=== PATIENT | female | born 1940 | race Caucasian/White ===

== ENCOUNTER 2017-08-20 13:20 | Emergency (ER) | payer MEDICARE, OTHER ==
[2017-08-20 13:21] VITALS: BMI 26.6
[2017-08-20 13:29] VITALS: PULSE 69; RESP 20; TEMP 98.2; O2SAT 98
[2017-08-20 14:41] VITALS: BP 174/76
--- NOTE | 2017-08-20 15:06 | C.PDOC ---
History Of Present Illness 77 yr old female brought in via EMS, presents to the ER for carbon monoxide exposure. Patient states her building had multiple evacuees for proven carbon monoxide elevation. Patient denies fever, vision changes, chest pain, palpitations, SOB, nausea, vomiting, headache, weakness or numbness. Time Seen by Provider: 08/20/17 14:08 Chief Complaint (Nursing): Dizziness/Lightheaded History Per: Patient History/Exam Limitations: no limitations Past Medical History Reviewed: Historical Data, Nursing Documentation, Vital Signs Vital Signs: Last Vital Signs Temp 98.2 F 08/20/17 13:27 Pulse 69 08/20/17 13:27 Resp 20 08/20/17 13:27 BP 174/76 H 08/20/17 14:41 Pulse Ox 98 08/20/17 15:06 - Medical History PMH: Arthritis, Asthma, CHF, HTN, Hypercholesterolemia Family History: States: No Known Family Hx - Social History Hx Tobacco Use: No Hx Alcohol Use: No Hx Substance Use: No - Immunization History Hx Tetanus Toxoid Vaccination: No Hx Influenza Vaccination: No Hx Pneumococcal Vaccination: No Review Of Systems Except As Marked, All Systems Reviewed And Found Negative. Constitutional: Negative for: Fever Eyes: Negative for: Vision Change Cardiovascular: Negative for: Chest Pain, Palpitations Respiratory: Negative for: Shortness of Breath Gastrointestinal: Negative for: Nausea, Vomiting Neurological: Negative for: Weakness, Numbness, Headache Physical Exam - Physical Exam Appears: Non-toxic, No Acute Distress Skin: Warm, Dry, No Rash Head: Atraumatic, Normacephalic Oral Mucosa: Moist Chest: Symmetrical, No Tenderness Cardiovascular: Rhythm Regular, No Murmur Respiratory: Normal Breath Sounds, No Rales, No Rhonchi, No Stridor, No Wheezing Extremity: Normal ROM, No Swelling Neurological/Psych: Oriented x3, Normal Speech ED Course And Treatment O2 Sat by Pulse Oximetry: 98 (RA) Pulse Ox Interpretation: Normal Medical Decision Making Medical Decision Making: PLAN: * ABG NOTE: finger CO pulse Ox=7 NORMAL LOW susp of CO exposure cleared for d/c Disposition Doctor Will See Patient In The: Office Counseled Patient/Family Regarding: Studies Performed, Diagnosis - Disposition Referrals: José Antonio Olivarez MD [Staff Provider] - Disposition: HOME/ ROUTINE Disposition Time: 15:06 Condition: GOOD Additional Instructions: Your Carbon Monoxide Level is 7 which is NORMAL (N=<10) This shows NO toxic exposure OK to follow-up with Dr. Olivarez as usual. Instructions: Carbon Monoxide Poisoning (ED) Forms: [facility] (Occitan) - Clinical Impression Clinical Impression: Carbon monoxide exposure - Scribe Statement The provider has reviewed the documentation as recorded by the Bibianaibe Keri Stoner Provider Attestation: All medical record entries made by the Bibianaibe were at my direction and personally dictated by me. I have reviewed the chart and agree that the record accurately reflects my personal performance of the history, physical exam, medical decision making, and the department course for this patient. I have also personally directed, reviewed, and agree with the discharge instructions and disposition.
== END 2017-08-20 15:14 | disposition home or self-care (01) ==
LOC: C.ER 13:20
DX: T75.89XA Other specified effects of external causes, initial encounter (principal); X58.XXXA Exposure to other specified factors, initial encounter

== ENCOUNTER 2018-05-06 02:25 | Inpatient (IN) | payer OTHER ==
[2018-05-06 02:25] VITALS: BMI 26.6
[2018-05-06 03:02] LABS: BASO # 0.1 K/uL (0.0-0.2); BASO % 0.8 % (0.0-2.0); EOS # 0.3 K/uL (0.0-0.7); EOS % 3.2 % (0.0-4.0); HEMOGLOBIN 10.3 g/dL (11.0-16.0); MEAN CELL VOLUME 78.4 fL (81.0-99.0); MEAN CORPUSCULAR HEMOGLOBIN 26.2 pg (27.0-31.0); MEAN CORPUSCULAR HGB CONC 33.4 g/dL (33.0-37.0); MEAN PLATELET VOLUME 8.1 fL (7.2-11.7); MONO % 11.3 % (0.0-10.0); NEUT # 3.3 K/uL (1.8-7.0); NEUT % 38.7 % (50.0-75.0); NRBC % 0.1 % (0.0-2.0); RBC 3.92 Mil/uL (3.80-5.20); RED CELL DISTRIBUTION WIDTH 15.5 % (11.5-14.5); WHITE BLOOD COUNT 8.7 K/uL (4.8-10.8)
[2018-05-06 03:43] LABS: ALB/GLOB RATIO 1.3 (1.0-2.1); ALBUMIN 4.1 g/dL (3.5-5.0); ALT/SGPT 30 U/L (9-52); AST/SGOT 32 U/L (14-36); BLOOD UREA NITROGEN 12 mg/dL (7-17); CALCIUM 9.7 mg/dl (8.6-10.4); GFR AFRICAN-AMERICAN 58; GFR NON-AFRICAN AMERICAN 48
--- NOTE | 2018-05-06 03:44 | C.PDOC ---
History Of Present Illness presents with shortness of breath, and hypertension over the last day. No chest pain or palpitations. SHARMA, no f/c/n/v. Tolerating po. Is making brent, almost striderous noise upon breathing Time Seen by Provider: 05/06/18 03:43 Chief Complaint (Nursing): High Blood Pressure History Per: Patient History/Exam Limitations: no limitations Onset/Duration Of Symptoms: Days Current Symptoms Are (Timing): Still Present Initiating Event: Other Exacerbating Factor(s): Coughing Current Respiratory Medications: See Home Med List Severity: Moderate Pain Scale Rating Of: 4 Associated Symptoms: Other. denies: Fever, Chills Reports Recently: Treated By A Physician Recent travel outside of the [place]: No Additional History Per: Family Past Medical History Reviewed: Historical Data, Nursing Documentation, Vital Signs Vital Signs: Last Vital Signs Temp 98.7 F 05/06/18 02:36 Pulse 71 05/06/18 05:46 Resp 20 05/06/18 05:46 BP 175/87 H 05/06/18 05:46 Pulse Ox 99 05/06/18 05:46 - Medical History PMH: Arthritis, Asthma, CHF, HTN, Hypercholesterolemia Denies: Chronic Kidney Disease Family History: States: No Known Family Hx - Social History Hx Tobacco Use: No Hx Alcohol Use: No Hx Substance Use: No - Immunization History Hx Tetanus Toxoid Vaccination: No Hx Influenza Vaccination: No Hx Pneumococcal Vaccination: No Review Of Systems Constitutional: Negative for: Fever, Chills Eyes: Negative for: Redness ENT: Positive for: Throat Pain Cardiovascular: Positive for: Edema (trace). Negative for: Chest Pain, Palpitations Respiratory: Positive for: Shortness of Breath, SOB with Excertion Gastrointestinal: Negative for: Nausea, Vomiting Genitourinary: Negative for: Dysuria Musculoskeletal: Negative for: Back Pain Skin: Negative for: Rash Neurological: Negative for: Weakness Psych: Negative for: Anxiety Physical Exam - Physical Exam Appears: Non-toxic Skin: Warm, Dry Head: Normacephalic Eye(s): bilateral: Normal Inspection Oral Mucosa: Moist Throat: No Erythema, No Exudate, No Drooling Neck: Trachea Midline, Supple Chest: Symmetrical Cardiovascular: Rhythm Regular Respiratory: Decreased Breath Sounds, Rales Gastrointestinal/Abdominal: Soft, No Tenderness, No Distention Back: Normal Inspection Extremity: Pedal Edema (trace) Extremity: Bilateral: Atraumatic Pulses: Left Dorsalis Pedis: Normal, Right Dorsalis Pedis: Normal Neurological/Psych: Oriented x3, Normal Speech, Normal Cognition Gait: Steady ED Course And Treatment - Laboratory Results Result Diagrams: 05/06/18 02:57 05/06/18 02:57 ECG: Interpreted By Me, Viewed By Me ECG Rhythm: Nonspecific Changes O2 Sat by Pulse Oximetry: 97 Pulse Ox Interpretation: Normal - Radiology CXR: Interpreted by Me, Viewed By Me CXR Interpretation: Yes: Other (mild vasc congestion). No: Infiltrates, Fracture, Pnemothorax Disposition Discussed With Dr.: José Antonio Olivarez Comment: accepted the pt onhis service and took over the care at 6:39AM Doctor Will See Patient In The: Hospital Counseled Patient/Family Regarding: Studies Performed, Diagnosis - Disposition Disposition: HOSPITALIZED Disposition Time: 03:44 Condition: FAIR Forms: [facility] [employer] [facility] (Vietnamese) - POA Present On Arrival: None - Clinical Impression Clinical Impression: CHF, acute, Dyspnea, Dysphagia Decision To Admit - Pt Status Changed To: Hospital Disposition Of: Inpatient - Admit Certification Admit to Inpatient:: After my assessment, the patient will require hospitalization for at least two midnights. This is because of the severity of symptoms shown, intensity of services needed, and/or the medical risk in this patient being treated as an outpatient. - InPatient: Physician Admission Certification: I certify that this patient requires 2 or more midnights of care for the following reason:: After my assessment, the patient will require hospitalization for at least two midnights. This is because of the severity of symptoms shown, intensity of services needed, and/or the medical risk in this patient being treated as an outpatient. - . Bed Request Type: Telemetry Admitting Physician: José Antonio Olivarez Patient Diagnosis: CHF, acute, Dyspnea, Dysphagia
[2018-05-06] MEDS: Albuterol-Ipratrop 3 mg / 0.5 (3 ml) UD IH SCH ×3 (04:30→05:30)
[2018-05-06] MEDS ORDERED: Albuterol 0.083% Inhal Sol (2.5 mg/3 mL) UD ONE (05:19)
[2018-05-06] MEDS: (Novolog) Insulin Aspart, Recombinant 100 u/ml 10 ml vial SC SCH ×4 (07:51→21:23)
--- NOTE | 2018-05-06 09:11 | RAD ---
Date of service: 05/06/2018 PROCEDURE: CHEST RADIOGRAPH, 1 VIEW HISTORY: SOB COMPARISON: 03/15/2016 FINDINGS: LUNGS: Current lung volumes less than before. Crowding of pulmonary vascular markings and additional mild pulmonary venous congestion suspect. - the latter is an interval change. PLEURA: No pneumothorax or pleural fluid seen. CARDIOVASCULAR: Mild cardiomegaly. Pulmonary vasculature note as above OSSEOUS STRUCTURES: Thoracic spondylosis. Bilateral shoulder arthrosis VISUALIZED UPPER ABDOMEN: Normal. OTHER FINDINGS: None. IMPRESSION: Current lung volumes less than before. Crowding of pulmonary vascular markings and additional mild pulmonary venous congestion suspect. - the latter is an interval change. . Mild cardiomegaly
[2018-05-06] MEDS ORDERED: Fluticasone Nasal 50 mcg/Spray NAS SCH (10:00)
[2018-05-06] MEDS: Pantoprazole 40 mg EC Tab PO SCH (11:10)
[2018-05-06] MEDS: Nitroglycerin 2% Ointment Foilpak UD TOP SCH ×2 (11:10→21:28)
--- NOTE | 2018-05-06 11:34 | CT ---
Date of service: 05/06/2018 PROCEDURE: CT Chest without contrast HISTORY: cough, hoarseness COMPARISON: None. TECHNIQUE: Contiguous axial images were obtained through the chest without intravenous contrast enhancement. Sagittal and coronal reconstructions were performed. Radiation dose (DLP): 226.6 mGy-cm. This CT exam was performed using one or more of the following dose reduction techniques: Automated exposure control, adjustment of the mA and/or kV according to patient size, and/or use of iterative reconstruction technique. FINDINGS: LUNGS: Clear lungs. Visualized airway clear. MEDIASTINUM: Unremarkable thoracic aorta. No aneurysm. Cardiomegaly. Coronary arterial and valvular calcifications. Main pulmonary artery unremarkable. No vascular congestion. No lymphadenopathy. PLEURA: No pleural fluid. No pneumothorax. BONES: No fracture. Degenerative changes. No destructive lesion. UPPER ABDOMEN: Distended gallbladder. OTHER FINDINGS: None. IMPRESSION: Unremarkable non-contrast enhanced CT of the chest.
--- NOTE | 2018-05-06 12:03 | CT ---
Date of service: 05/06/2018 PROCEDURE: CT NECK WITHOUT CONTRAST HISTORY: Hoarseness, dysphagia COMPARISON: None. TECHNIQUE: CT of the neck without intravenous contrast. Coronal and sagittal reformats generated. Radiation dose: DLP 347.65 mGy-cm This CT exam was performed using one or more of the following dose reduction techniques: Automated exposure control, adjustment of the mA and/or kV according to patient size, and/or use of iterative reconstruction technique. FINDINGS: NASOPHARYNX: Unremarkable tech: Removed factors right. SUPRAHYOID NECK: Unremarkable oropharynx, oral cavity, parapharyngeal space and retropharyngeal space. INFRAHYOID NECK: Unremarkable larynx, hypopharynx, and supraglottic space. There is asymmetry of the aryepiglottic folds and pyriform sinuses which however these findings may in part be due to motion artifacts/ swallowing at the time of acquisition of the image. Some residual and or retained secretion in the left pyriform sinus may also account for some asymmetry. If further evaluation is required, consider repeat CT scan of the neck with contrast. MASS: No large cervical mass or collection is identified. GLANDS: Parotid and submandibular glands unremarkable. There is enlargement of the thyroid gland which is somewhat heterogeneous in appearance some of which is likely due to streak and beam hardening artifact however the possibility of multiple nodules/-border should be excluded. Enlarged thyroid gland appears to narrow the airway at this level. Followup ultrasound of the thyroid gland is recommended thyroid. Clinical correlation recommended. The visualized proximal/ upper esophagus is somewhat bulbous in appearance and appears to project into the upper airway with what could represent some adjacent mucous secretion along the lateral aspect of the trachea at the level of the thoracic inlet. Recommend followup esophagram or direct visualization. LYMPH NODES: Multiple small nonspecific bilateral cervical lymph nodes none of which appear pathologically enlarged. CERVICAL SPINE: Mild multilevel degenerative spondylosis of the cervical spine with mild kyphotic angulation centered at the C4-C5 level which could be secondary to patient positioning in the gantry; underlying element of muscle spasm may contribute. OTHER FINDINGS: The visualized proximal/ upper esophagus is somewhat bulbous in appearance and appears to project into the upper airway with what could represent some adjacent mucous secretion along the lateral aspect of the trachea at the level of the thoracic inlet. Consider followup esophagram or endoscopy. The cervical vasculature is not well delineated due to the lack of circulating intravenous contrast however there are partially calcified atherosclerotic plaque changes seen at both carotid bifurcations. IMPRESSION: There is enlarged heterogeneous thyroid gland. Findings probably represent thyroid goiter. Recommend followup thyroid ultrasound. The enlarged thyroid gland appears to narrow the airway at this level. Upper/proximal esophagus appears somewhat is somewhat bulbous in appearance and appears to project into the upper airway with what could represent some adjacent mucous secretion along the lateral aspect of the trachea at the level of the thoracic inlet. Recommend follow-up of esophagram for direct visualization. Collectively these findings could account for patient's difficulty swallowing. See above discussion for additional details findings . Preliminary report provided by overnight radiology service Note that this report was placed in PA review folder for followup
[2018-05-06] MEDS ORDERED: (Novolog) Insulin Aspart, Recombinant 100 u/ml 10 ml vial ONE (12:32)
[2018-05-06] MEDS: MethylPREDNISolone 40 mg Vial IVP SCH ×2 (13:23→21:28)
[2018-05-06 13:34] LABS: CK-MB 0.81 ng/mL (0.0-3.38); TROPONIN I 0.014 ng/mL (0.00-0.120)
[2018-05-06] MEDS: Albuterol-Ipratrop 3 mg / 0.5 (3 ml) UD INH SCH ×2 (14:10→20:00)
[2018-05-06] MEDS: Potassium Chloride 20 mEq ER Tab PO SCH (17:38)
[2018-05-06 20:39] LABS: CK-MB 0.74 ng/mL (0.0-3.38)
[2018-05-06 20:44] LABS: FREE T4 1.21 ng/dL (0.78-2.19)
[2018-05-06] MEDS: Fluticasone Nasal 50 mcg/Spray NAS SCH (21:00)
[2018-05-07] MEDS: Albuterol-Ipratrop 3 mg / 0.5 (3 ml) UD INH SCH ×4 (01:23→19:55)
--- NOTE | 2018-05-07 02:32 | CON ---
DATE: 05/06/2018 CARDIOLOGY CONSULTATION REASON FOR CONSULTATION: Shortness of breath and abnormal EKG. HISTORY OF PRESENT ILLNESS: The patient is a 77-year-old female from [facility] who has a history of hypertension, has a history of positive Myoview stress test in 2013 for inferolateral ischemia, has a history of bronchial asthma and history of goiter. She presented because of shortness of breath and what appeared to this ER physician has to be stridor. The patient denies any chest pain and is unaware of any history of heart attack in the past. The patient denies any productive cough, fever or chills. SOCIAL HISTORY: Nonsmoker. MEDICATIONS: Hydralazine 25 mg twice a day, clonidine 0.1 mg at bedtime, aspirin 81 mg once a day, heparin 5000 units subcutaneously every 8 hours, Lasix 40 mg intravenously once a day, Norvasc 10 mg once a day, Protonix 40 mg p.o. once a day, Solu-Medrol 40 mg intravenously every 8 hours, TriCor 48 mg once a day. REVIEW OF SYSTEMS: No fever or chills. No nausea or vomiting. No recent dizziness or syncope. PHYSICAL EXAMINATION: GENERAL: The patient is an elderly female who does not appear to be in acute distress. VITAL SIGNS: Blood pressure 173/79, heart rate 72, temperature 98.2, respiration 18. HEENT: Normocephalic. CHEST: Diffuse bilateral rhonchi. HEART: S1 and S2 are regular and distant. ABDOMEN: Soft. EXTREMITIES: Trace leg edema. EKG revealed normal sinus rhythm with nonspecific lateral T-wave changes. LABORATORY DATA: SMA-7: Sodium 146, potassium 3.4, chloride 108, CO2 of 27, glucose 100, BUN 12, creatinine 1.1. Two sets of troponins are negative. ProBNP is 1250. Chest x-ray revealed borderline cardiomegaly and prominent bronchovascular markings. Echocardiographic study in 2016 revealed normal left ventricular systolic function, mild mitral insufficiency, [id number] pulmonary hypertension. Neck soft tissue CT scan without contrast revealed enlarged heterogeneous thyroid gland finding probably represents thyroid goiter. Recommend followup thyroid ultrasound. Enlarged thyroid gland appears to narrow the airway at the level of upper/proximal esophagus, appears somewhat bulbous in appearance and appears to project into the upper airway which could represent from adjacent mucus secretions along the lateral aspect of the trachea. Recommend followup esophagogram for . Head CT scan without contrast was unremarkable. ASSESSMENT: 1. Marked thyroid goiter with upper airway compromise probably related to the goiter. 2. Abnormal EKG with evidence of nonspecific lateral T-wave changes. Myocardial infarction is ruled out. 3. Uncontrolled hypertension. 4. Hypokalemia. 5. Uncontrolled diabetes mellitus. 6. Lhmd-by-tofyalfv pulmonary hypertension. RECOMMENDATIONS: Continue current albuterol inhaler. Continue aspirin 81 mg once a day, subcutaneous heparin 5000 units every 8 hours, Lasix 40 mg intravenously once a day, Norvasc 10 mg once a day, Solu-Medrol 40 mg intravenously every 8 hours, TriCor 48 mg once a day. Obtain an echocardiogram and consider surgical evaluation for the goiter. In the meantime, obtain thyroid profile. Eliseo Arce MD
--- NOTE | 2018-05-07 06:32 | HP ---
DATE: 05/06/2018 SUBJECTIVE: This patient is a 77-year-old female with history of hypertension, diabetes, arthritis, and back pain. The patient came to the hospital because the patient was complaining of shortness of breath, and the patient has stated that the shortness of breath that is for the past 3 days was progressively worsening, and so, patient came for evaluation. In the emergency room, the patient had test done, and today a CAT scan of the chest and had CT of the neck. Also, the patient was complaining of some chest tightness, so patient was admitted. Patient was on different medications including , Montelukast, meloxicam, and also patient was on oxycodone, amlodipine, , gabapentin, isosorbide dinitrate. ALLERGIES: THE PATIENT HAS NO KNOWN ALLERGIES. SOCIAL HISTORY: No smoking, alcohol abuse. The patient lives alone. FAMILY HISTORY: No inherited disease. REVIEW OF SYSTEMS: The patient is having shortness of breath at rest. Cardiovascular: The patient has been having some tightness in the chest. GI: No nausea or vomiting but complains of epigastric pain. : No dysuria. Neurologic: The patient is complaining of back pain which is old and increased with standing or prolonged sitting position. PHYSICAL EXAMINATION: GENERAL: The patient is alert and awake and oriented x3, able to speak full sentence. VITAL SIGNS: Blood pressure now at 174/74, pulse is 74, respirations 20, temperature 98.1. NECK: Supple. No JVD. LUNGS: He does have some rhonchi with periods of expiratory wheezing and also some grunting noted. HEART: Regular rate and rhythm. ABDOMEN: Soft, nontender. No palpable mass. EXTREMITIES: There is no edema. BACK: Tender in the lower lumbar area and increased risk of friction and extension. LABORATORY DATA: The patient had some tests done. WBC 8.7, hemoglobin 10.3, hematocrit 20.7, and platelet is 460. The chemistry showed of 66, troponin 0.014. Sodium 146, potassium 3.4, chloride is 108, bicarb 27, BUN 12, creatinine 1.1, and GFR is 58. Glucose is 100. Also, the patient had other tests done in the emergency room. The patient had a CAT scan of the chest that has revealed unremarkable noncontrast enhanced CT of the chest and also the patient has soft tissue CT of the neck, there is an enlarged heterogeneous thyroid gland representing thyroid goiter and enlarged thyroid gland appeared to now at this level. So, this is the report from the CT of the neck. ASSESSMENT AND PLAN: 1. The plan is that patient will be on telemetry, and the case was reviewed with VIJI Aponte, consult is made with Dr. Arce, awnings mechanic, and also with Dr. Novak, Pulmonary, cerebrospinal fluid. 2. Chronic obstructive pulmonary disease. 3. Diabetes. 4. Hypertension. 5. Goiter. José Antonio Olivarez MD
[2018-05-07] MEDS: MethylPREDNISolone 40 mg Vial IVP SCH ×2 (06:56→22:34)
[2018-05-07 07:27] LABS: CALCIUM 9.8 mg/dl (8.6-10.4)
[2018-05-07 07:28] LABS: BASO % 0.1 % (0.0-2.0); HEMOGLOBIN 10.4 g/dL (11.0-16.0); LYMPH # 2.5 K/uL (1.0-4.3); LYMPH % 22.2 % (20.0-40.0); MEAN CELL VOLUME 78.9 fL (81.0-99.0); MEAN CORPUSCULAR HEMOGLOBIN 25.8 pg (27.0-31.0); MEAN CORPUSCULAR HGB CONC 32.7 g/dL (33.0-37.0); MEAN PLATELET VOLUME 8.3 fL (7.2-11.7); MONO # 0.5 K/uL (0.0-0.8); MONO % 4.7 % (0.0-10.0); NEUT # 8.2 K/uL (1.8-7.0); RBC 4.05 Mil/uL (3.80-5.20); RED CELL DISTRIBUTION WIDTH 15.8 % (11.5-14.5); WHITE BLOOD COUNT 11.3 K/uL (4.8-10.8)
[2018-05-07] MEDS: (Novolog) Insulin Aspart, Recombinant 100 u/ml 10 ml vial SC SCH ×4 (08:49→22:42)
[2018-05-07] MEDS: Fluticasone Nasal 50 mcg/Spray NAS SCH ×2 (08:55→22:35)
[2018-05-07] MEDS: Pantoprazole 40 mg EC Tab PO SCH (09:37)
[2018-05-07] MEDS: Nitroglycerin 2% Ointment Foilpak UD TOP SCH ×2 (09:38→22:34)
[2018-05-07] MEDS: Potassium Chloride 20 mEq ER Tab PO SCH (09:38)
[2018-05-07] MEDS ORDERED: Potassium Chloride 20 mEq ER Tab PO ONE (10:00)
--- NOTE | 2018-05-07 11:42 | CARD ---
APPROVED REPORT Date of service: 05/06/2018 EKG Measurement Heart [id number] OR [id number] [id number] <Conclusion> Normal sinus rhythm Nonspecific T wave abnormality Abnormal ECG
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
--- NOTE | 2018-05-07 18:08 | PN ---
DATE: 05/07/2018 SUBJECTIVE: The patient denies chest pain. Shortness of breath has improved. No wheezing. PHYSICAL EXAMINATION: VITAL SIGNS: Blood pressure 132/75, heart rate 63, temperature 98.3, respiration 20. HEENT: Normocephalic. CHEST: Minimal rhonchi. HEART: S1 and S2, regular. ABDOMEN: Soft. EXTREMITIES: No edema. LABORATORY DATA: Today's SMA-7; sodium 146, potassium 3.4, chloride 102, CO2 of 30, glucose 190, BUN 20, creatinine 1.6. Today's hemoglobin and hematocrit 10.4 and 31.9, white count is 11.3, platelet count 540,000. ASSESSMENT: 1. Chronic obstructive lung disease. 2. Multinodular goiter with upper airway compromise. 3. Hypertension. 4. Hypokalemia. 5. Uncontrolled diabetes mellitus. 6. [id number] pulmonary hypertension. 7. Prerenal azotemia. RECOMMENDATIONS: Discontinue Lasix. Continue K-Dur at 20 mEq orally once a day, aspirin 81 mg once a day, clonidine 0.1 mg at bedtime, hydralazine 25 mg twice a day, Norvasc 10 mg once a day, TriCor at 48 mg once a day, Solu-Medrol 40 mg intravenously every 12 hours. Eliseo Arce MD
--- NOTE | 2018-05-08 00:54 | PN ---
DATE: 05/07/2018 SUBJECTIVE: Today, the patient is alert and awake. She is seen and examined. The patient has less shortness of breath today, but she gets severe shortness of breath on exertion. Denied any chest pain or palpitation. The patient is feeling weak. PHYSICAL EXAMINATION: VITAL SIGNS: The patient has a blood pressure of 132/75, pulse 66, respirations are 20, and temperature is 98.2. NECK: Supple. LUNGS: She has some expiratory wheezing noted. HEART: Regular rate and rhythm. Positive murmur. ABDOMEN: Soft and nontender. Positive bowel sounds. EXTREMITIES: There is no edema. LABORATORY DATA: The patient's blood work has shown WBC of 11.3, the patient ; hemoglobin 10.4; hematocrit 31.9; and platelets 540. Chemistry showed a sodium of 146, potassium 3.4, chloride 102, bicarbonate is 30, BUN 20, creatinine 1.6, glucose 190, and calcium is 9.8. The plan is that we are going to decrease the Solu-Medrol to every 12 hours. Pulmonary consult with Dr. Novak is seen and appreciated. The patient will have a PFT when more stable. Progress note from Dr. Arce, cardiology, also appreciated. This is also I received. Now, we are going to continue the current treatment. The case was discussed and reviewed with Stephanie Hamilton, the nurse practitioner. José Antonio Olivarez MD
[2018-05-08] MEDS: Albuterol-Ipratrop 3 mg / 0.5 (3 ml) UD INH SCH ×4 (01:16→19:46)
[2018-05-08] MEDS: (Novolog) Insulin Aspart, Recombinant 100 u/ml 10 ml vial SC SCH ×4 (08:52→22:09)
[2018-05-08] MEDS: Fluticasone Nasal 50 mcg/Spray NAS SCH ×2 (08:53→21:00)
[2018-05-08] MEDS: Pantoprazole 40 mg EC Tab PO SCH (10:05)
[2018-05-08] MEDS: Nitroglycerin 2% Ointment Foilpak UD TOP SCH ×2 (10:06→22:18)
[2018-05-08] MEDS: MethylPREDNISolone 40 mg Vial IVP SCH (10:06)
[2018-05-08] MEDS: Potassium Chloride 20 mEq ER Tab PO SCH (10:06)
--- NOTE | 2018-05-08 12:15 | US ---
Thyroid ultrasound History: Thyroid nodules. Comparison: CT dated 05/06/2018 Technique: Real-time sonography was performed through the thyroid. Findings: Right lobe: 5.6 x 1.5 x 2.4 centimeters. Heterogeneous echotexture. Normal flow. Multiple nodules: For example largest 3 include: Lower pole heterogeneous echogenic nodule with internal cystic foci measuring 5 x 5 x 8 millimeters. Lower pole heterogeneous echogenic nodule with internal cystic foci measuring 5 x 3 x 5 millimeters. Midpole heterogeneous cystic/solid nodule measuring 6 x 4 x 6 millimeters. Thyroid isthmus measures 3 millimeters. Heterogeneous echotexture. Normal flow. Heterogeneous partially echogenic nodule at the left aspect of the isthmus measuring 1.5 x 0.6 x 1.2 centimeters. Left lobe: 6.3 x 1.9 x 2.5 centimeters. Heterogeneous echotexture. Normal flow. Multiple nodules: For example largest 3 include: Midpole heterogeneous echogenic nodule with internal cystic foci measuring 1.5 x 1.0 x 1.5 centimeters. Mid to lower pole heterogeneous echogenic nodule with a few punctate internal cystic foci measuring 2.1 x 1.1 x 1.3 centimeters. Lower pole heterogeneous complex solid/cystic nodule measuring 1.4 x 0.9 x 1.5 centimeters. Impression: Multinodular thyroid gland as described above.
[2018-05-08 14:17] LABS: CALCIUM 9.9 mg/dl (8.6-10.4)
[2018-05-08] MEDS ORDERED: Oxycodone/Acetaminophen 5/325 mg Tab PO PRN (15:30)
--- NOTE | 2018-05-08 17:13 | CP.PCM.PN ---
Subjective - Date & Time of Evaluation Date of Evaluation: 05/08/18 Time of Evaluation: 17:08 - Subjective Subjective: PT ALERT, LESS COUGH. ROS ; OTHERWISE NEG Objective - Vital Signs/Intake and Output Vital Signs (last 24 hours): Temp Pulse Resp BP Pulse Ox 98.3 F 60 20 130/61 98 05/08/18 15:00 05/08/18 15:00 05/08/18 15:00 05/08/18 15:00 05/08/18 15:00 - Medications Medications: Current Medications Acetaminophen (Tylenol 325mg Tab) 650 mg PO Q6 PRN PRN Reason: PAIN, MILD 1-3 Albuterol/Ipratropium (Duoneb 3 Mg/0.5 Mg (3 Ml) Ud) 3 ml INH RQ6 [facility] Last Admin: 05/08/18 13:32 Dose: 3 ml Amlodipine Besylate (Norvasc) 10 mg PO DAILY [facility] Last Admin: 05/08/18 10:01 Dose: 10 mg Aspirin (Ecotrin) 81 mg PO DAILY [facility] Last Admin: 05/08/18 10:02 Dose: 81 mg Clonidine HCl (Catapres) 0.1 mg PO HS [facility] Last Admin: 05/07/18 22:35 Dose: 0.1 mg Fenofibrate (Tricor) 48 mg PO DAILY [facility] Last Admin: 05/08/18 10:06 Dose: 48 mg Fluticasone Propionate (Flonase) 1 spr MAGNO RQ12 [facility] Last Admin: 05/08/18 08:53 Dose: 1 spr Heparin Sodium (Porcine) (Heparin) 5,000 units SC Q8 [facility] Last Admin: 05/08/18 14:07 Dose: 5,000 units Hydralazine HCl (Apresoline) 25 mg PO Q12 [facility] Last Admin: 05/08/18 10:02 Dose: 25 mg Insulin Aspart (Novolog) 0 unit SC ACHS [facility] PRN Reason: Protocol Last Admin: 05/08/18 12:19 Dose: 3 unit Methylprednisolone (Solu-Medrol) 40 mg IVP DAILY [facility] Montelukast Sodium (Singulair) 10 mg PO HS [facility] Last Admin: 05/07/18 22:34 Dose: 10 mg Nitroglycerin (Nitro-Bid 2% Oint) 0.5 ea TOP Q12 [facility] Last Admin: 05/08/18 10:06 Dose: 0.5 ea Oxycodone/Acetaminophen (Percocet 5/325 Mg Tab) 1 tab PO Q6H PRN PRN Reason: Pain, moderate (4-7) Stop: 05/11/18 15:31 Pantoprazole Sodium (Protonix Ec Tab) 40 mg PO DAILY [facility] Last Admin: 05/08/18 10:05 Dose: 40 mg Potassium Chloride (K-Dur 20 Meq Er Tab) 20 meq PO DAILY [facility] Stop: 05/08/18 17:16 Last Admin: 05/08/18 10:06 Dose: 20 meq - Labs Labs: 05/07/18 06:38 05/08/18 13:54 - Constitutional Appears: No Acute Distress - Head Exam Head Exam: ATRAUMATIC, NORMOCEPHALIC - Eye Exam Eye Exam: EOMI, Normal appearance - ENT Exam ENT Exam: Mucous Membranes Moist - Neck Exam Neck Exam: absent: Tenderness - Respiratory Exam Respiratory Exam: Decreased Breath Sounds. absent: Accessory Muscle Use, Wheezes, Respiratory Distress - Cardiovascular Exam Cardiovascular Exam: RRR, +S1, +S2 - GI/Abdominal Exam GI & Abdominal Exam: Soft. absent: Tenderness - Rectal Exam Rectal Exam: Deferred - Extremities Exam Extremities Exam: absent: Calf Tenderness, Pedal Edema - Back Exam Back Exam: absent: CVA tenderness (L), CVA tenderness (R) - Neurological Exam Neurological Exam: Alert, CN II-XII Intact - Psychiatric Exam Psychiatric exam: Normal Mood - Skin Skin Exam: absent: Rash Assessment and Plan (1) COPD exacerbation Status: Acute (2) Hypertension Status: Acute (3) Diabetes Status: Acute (4) Anemia Status: Acute (5) Acute kidney injury Status: Acute (6) CAD (coronary artery disease) Status: Acute (7) Goiter Status: Acute - Assessment and Plan (Free Text) Assessment: RESP STATUS IMPROVING, CONT PULM TOILET. NEB BD, CXR REVIEWED, DISCUSSED WITH STAFF.
--- NOTE | 2018-05-08 22:33 | PN ---
DATE: 05/08/2018 SUBJECTIVE: The patient denies any wheezing. She has comfortable breathing at this time. PHYSICAL EXAMINATION: VITAL SIGNS: Blood pressure 130/61, heart rate 60, temperature is 98.3, respirations 20. HEENT: Normocephalic. CHEST: Minimal rhonchi. HEART: S1 and S2 regular. EXTREMITIES: No edema. LABORATORY DATA: Today's SMA-7, sodium 146, potassium 3.4, chloride 102, CO2 of 30, glucose 190, BUN 20, creatinine 1.6. Thyroid ultrasound was consistent with multinodular goiter. ASSESSMENT: 1. Multinodular goiter with upper airway compromise. 2. Systemic hypertension. 3. Hypokalemia. 4. Prerenal azotemia. 5. [id number] pulmonary hypertension. 6. Uncontrolled diabetes mellitus. RECOMMENDATIONS: Continue hydralazine 25 mg twice a day, clonidine 0.1 mg once a day, aspirin 81 mg once a day, albuterol inhaler every 6 hours, subcutaneous heparin 5000 units every 8 hours, Norvasc 10 mg once a day, Protonix 40 mg p.o. once a day, TriCor 48 mg once a day, Solu-Medrol 40 mg intravenously daily. The patient did receive K-Dur 20 mEq oral replacement today, and she is currently off diuretics. If kidney function remains the same, then consider IV hydration. The case was discussed with the primary physician, Dr. Olivarez who will consult Dr. Lua for the problem of upper airway resection caused by multinodular goiter. In the meantime, I recommended pulmonary function test. Eliseo Arce MD
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
[2018-05-09] MEDS: Albuterol-Ipratrop 3 mg / 0.5 (3 ml) UD INH SCH ×4 (01:16→20:02)
[2018-05-09] MEDS: (Novolog) Insulin Aspart, Recombinant 100 u/ml 10 ml vial SC SCH ×5 (06:30→22:47)
[2018-05-09 07:23] LABS: BASO % 0.2 % (0.0-2.0); EOS % 0.1 % (0.0-4.0); HEMOGLOBIN 10.1 g/dL (11.0-16.0); LYMPH # 5.2 K/uL (1.0-4.3); LYMPH % 30.8 % (20.0-40.0); MEAN CELL VOLUME 78.7 fL (81.0-99.0); MEAN PLATELET VOLUME 8.2 fL (7.2-11.7); MONO # 1.3 K/uL (0.0-0.8); MONO % 7.7 % (0.0-10.0); NEUT # 10.2 K/uL (1.8-7.0); NEUT % 61.2 % (50.0-75.0); RBC 3.89 Mil/uL (3.80-5.20); RED CELL DISTRIBUTION WIDTH 15.9 % (11.5-14.5); WHITE BLOOD COUNT 16.7 K/uL (4.8-10.8)
[2018-05-09 07:50] LABS: CALCIUM 9.5 mg/dl (8.6-10.4)
[2018-05-09] MEDS: Fluticasone Nasal 50 mcg/Spray NAS SCH ×2 (08:39→22:41)
[2018-05-09] MEDS: MethylPREDNISolone 40 mg Vial IVP SCH (09:12)
[2018-05-09] MEDS: Pantoprazole 40 mg EC Tab PO SCH (09:13)
[2018-05-09] MEDS: Nitroglycerin 2% Ointment Foilpak UD TOP SCH ×2 (09:13→22:42)
--- NOTE | 2018-05-09 10:55 | RAD ---
Sacrum and coccyx 3 views History: Pain. Comparison: None available. Findings: No evidence for acute displaced fracture or dislocation. Mild sclerosis at the right SI joint. Anterolisthesis of L4 on L5. Sclerosis with superior endplate concavity of the L5 vertebral body. Impression: No evidence for acute displaced fracture or dislocation. Mild sclerosis at the right SI joint. Anterolisthesis of L4 on L5. Sclerosis with superior endplate concavity of the L5 vertebral body. If pain persists, consider MRI.
--- NOTE | 2018-05-09 10:58 | RAD ---
Lumbar spine three views History: Back pain. Comparison: None available. Findings: Moderate fecal retention in the colon. Anterolisthesis of L4 on L5. Superior endplate concavity of the L5 vertebral body. Lower level facet hypertrophy and sclerosis. Prominent degenerative changes at the L2-3 disc space with sclerosis and or mild superior endplate concavity at the L3 vertebral body. This may be better evaluated with MRI if clinically indicated. Prominent degenerative changes in the spine. Aortic calcifications. Impression: Moderate fecal retention in the colon. Anterolisthesis of L4 on L5. Superior endplate concavity of the L5 vertebral body. Lower level facet hypertrophy and sclerosis. Prominent degenerative changes at the L2-3 disc space with sclerosis and or mild superior endplate concavity at the L3 vertebral body. This may be better evaluated with MRI if clinically indicated.
--- NOTE | 2018-05-09 16:07 | CARD ---
APPROVED REPORT Date of service: 05/06/2018 EXAM: Two-dimensional and M-mode echocardiogram with Doppler and color Doppler. Other Information Quality : FairRhythm : NSR INDICATION Dyspnea Congestive Heart Failure COPD RISK FACTORS Hypertension M-Mode DIMENSIONS Left Atrium (MM)3.85 (2.5-4.0cm)IVSd0.83 (0.7-1.1cm) Aortic Root2.50 (2.2-3.7cm)LVDd5.10 (4.0-5.6cm) Aortic Cusp Exc.1.84 (1.5-2.0cm)PWd0.80 (0.7-1.1cm) FS (%) 54 %LVDs2.36 (2.0-3.8cm) LVEF (%)84 (>50%) Mitral Valve MV E Ehvwrafe35.4cm/sMV A Pkofkhom210.3cm/sE/A ratio0.5 TDI E/Lateral E'0.0E/Medial E'0.0 Tricuspid Valve TR Peak Jlmwsshk812ls/sTR Peak Gr.[id number] LEFT VENTRICLE The left ventricle is normal size. There is normal left ventricular wall thickness. The Ejection Fraction is >70%. There is normal LV segmental wall motion. Transmitral Doppler flow pattern is Grade I-abnormal relaxation pattern. RIGHT VENTRICLE The right ventricle is normal size. The right ventricular systolic function is normal. ATRIA The left atrium size is normal. The right atrium size is normal. The interatrial septum is intact with no evidence for an atrial septal defect. AORTIC VALVE The aortic valve is trileaflet. The aortic valve is mildly sclerotic. No aortic regurgitation is present. MITRAL VALVE The mitral valve is calcified but opens well. Mitral regurgitation is mild. TRICUSPID VALVE The tricuspid valve is normal in structure. There is mild tricuspid regurgitation. Right ventricular systolic pressure is estimated at 29 mmHg. There is no pulmonary hypertension. PULMONIC VALVE The pulmonary valve is normal in structure. GREAT VESSELS The aortic root is normal size. The aortic root displays moderate sclerocalcific changes of the aortic root. PERICARDIAL EFFUSION There is no pericardial effusion. <Conclusion> The left ventricle is normal size. The Ejection Fraction is >70%. Transmitral Doppler flow pattern is Grade I-abnormal relaxation pattern. Mitral regurgitation is mild. There is mild tricuspid regurgitation. Right ventricular systolic pressure is estimated at 29 mmHg. There is no pulmonary hypertension. The aortic root is normal size. The aortic root displays moderate sclerocalcific changes of the aortic root. There is no pericardial effusion.
[2018-05-09] MEDS ORDERED: Sodium Chloride 0.45% 1,000 ML IV ONE (16:14)
--- NOTE | 2018-05-09 16:19 | CP.PCM.PN ---
Subjective - Date & Time of Evaluation Date of Evaluation: 05/09/18 Time of Evaluation: 16:17 - Subjective Subjective: PT ALERT, FEELS BETTER, LESS COUGH., ROS; OTHERWISE NEG. Objective - Vital Signs/Intake and Output Vital Signs (last 24 hours): Temp Pulse Resp BP Pulse Ox 97.8 F 56 L 29 H 147/66 99 05/09/18 15:00 05/09/18 15:00 05/09/18 15:00 05/09/18 15:00 05/09/18 15:00 Intake and Output: 05/09/18 05/09/18 06:59 18:59 Intake Total 400 240 Balance 400 240 - Medications Medications: Current Medications Acetaminophen (Tylenol 325mg Tab) 650 mg PO Q6 PRN PRN Reason: PAIN, MILD 1-3 Albuterol/Ipratropium (Duoneb 3 Mg/0.5 Mg (3 Ml) Ud) 3 ml INH RQ6 [facility] Last Admin: 05/09/18 13:20 Dose: 3 ml Amlodipine Besylate (Norvasc) 10 mg PO DAILY [facility] Last Admin: 05/09/18 09:13 Dose: 10 mg Aspirin (Ecotrin) 81 mg PO DAILY [facility] Last Admin: 05/09/18 09:13 Dose: 81 mg Clonidine HCl (Catapres) 0.1 mg PO HS [facility] Last Admin: 05/08/18 22:18 Dose: 0.1 mg Fenofibrate (Tricor) 48 mg PO DAILY [facility] Last Admin: 05/09/18 09:13 Dose: 48 mg Fluticasone Propionate (Flonase) 1 spr MAGNO RQ12 [facility] Last Admin: 05/09/18 08:39 Dose: 1 spr Heparin Sodium (Porcine) (Heparin) 5,000 units SC Q8 [facility] Last Admin: 05/09/18 14:07 Dose: 5,000 units Hydralazine HCl (Apresoline) 25 mg PO Q12 [facility] Last Admin: 05/09/18 09:13 Dose: 25 mg Sodium Chloride (Sodium Chloride 0.45%) 1,000 mls @ 40 mls/hr IV .Q24H ONE Stop: 05/10/18 16:13 Insulin Aspart (Novolog) 0 unit SC ACHS [facility] PRN Reason: Protocol Last Admin: 05/09/18 12:43 Dose: Not Given Methylprednisolone (Solu-Medrol) 40 mg IVP DAILY [facility] Last Admin: 05/09/18 09:12 Dose: 40 mg Montelukast Sodium (Singulair) 10 mg PO HS [facility] Last Admin: 05/08/18 22:18 Dose: 10 mg Nitroglycerin (Nitro-Bid 2% Oint) 0.5 ea TOP Q12 [facility] Last Admin: 05/09/18 09:13 Dose: 0.5 ea Oxycodone/Acetaminophen (Percocet 5/325 Mg Tab) 1 tab PO Q6H PRN PRN Reason: Pain, moderate (4-7) Stop: 05/11/18 15:31 Pantoprazole Sodium (Protonix Ec Tab) 40 mg PO DAILY [facility] Last Admin: 05/09/18 09:13 Dose: 40 mg - Labs Labs: 05/09/18 07:15 05/09/18 07:15 - Constitutional Appears: No Acute Distress - Head Exam Head Exam: ATRAUMATIC, NORMOCEPHALIC - Eye Exam Eye Exam: EOMI, Normal appearance - ENT Exam ENT Exam: Mucous Membranes Moist - Neck Exam Neck Exam: Thyromegaly - Respiratory Exam Respiratory Exam: Decreased Breath Sounds. absent: Accessory Muscle Use, Respiratory Distress - Cardiovascular Exam Cardiovascular Exam: RRR, +S1, +S2 - GI/Abdominal Exam GI & Abdominal Exam: Soft. absent: Tenderness - Rectal Exam Rectal Exam: Deferred - Extremities Exam Extremities Exam: absent: Calf Tenderness, Pedal Edema - Back Exam Back Exam: absent: CVA tenderness (L), CVA tenderness (R) - Neurological Exam Neurological Exam: Alert, Awake, CN II-XII Intact, Oriented x3 - Psychiatric Exam Psychiatric exam: Normal Mood - Skin Skin Exam: absent: Rash Assessment and Plan (1) COPD exacerbation Status: Acute (2) Hypertension Status: Acute (3) Diabetes Status: Acute (4) Anemia Status: Acute (5) Acute kidney injury Status: Acute (6) CAD (coronary artery disease) Status: Acute (7) Goiter Status: Acute - Assessment and Plan (Free Text) Assessment: RESP STATUS IMPROVING, CONT NEB BD, STEROID TAPER TOLERATED. CXR REVIEWED. FOR POSS THYROID BX. DISCUSSED WITH STAFF AND PMD.
--- NOTE | 2018-05-09 21:43 | PN ---
DATE: 05/09/2018 SUBJECTIVE: The patient is mildly short of breath. No retrosternal chest pain. PHYSICAL EXAMINATION: VITAL SIGNS: Blood pressure 169/75, heart rate 54, temperature 98, respirations 20. HEENT: Normocephalic. CHEST: Minimal rhonchi. HEART: S1 and S2 are regular. ABDOMEN: Soft. EXTREMITIES: No edema. LABORATORY DATA: SMA-7: Sodium 145, potassium 3.6, chloride 104, CO2 of 29, glucose 145, BUN 45, creatinine 1.4. Today's hemoglobin and hematocrit 10.1 and 30.7, white count 16.7, platelet count 466,000. Sacrum and coccyx x-ray, no evidence of displaced fracture or dislocation, anterolisthesis of L4 on L5. Lumbosacral spine x-ray, moderate fecal retention in the colon. Anterolisthesis of L4 on L5. ASSESSMENT: 1. Hypertension. 2. Multinodular goiter with difficulty swallowing and stridor on admission. 3. Improved hypokalemia. 4. Uncontrolled diabetes mellitus. 5. Prerenal azotemia. RECOMMENDATIONS: Continue hydralazine 25 mg twice a day, clonidine 0.1 mg at bedtime, aspirin 81 gm once a day, subcutaneous heparin 5000 units every 12 hours, Norvasc 10 mg once a day, TriCor 48 mg once a day. I will start half normal saline at 40 mL/hour. Eliseo Arce MD
[2018-05-10 02:31] VITALS: RESP 20
[2018-05-10] MEDS: Albuterol-Ipratrop 3 mg / 0.5 (3 ml) UD INH SCH ×4 (02:53→19:07)
--- NOTE | 2018-05-10 06:52 | PN ---
DATE: 05/09/2018 SUBJECTIVE: Today, the patient is alert and awake. No shortness of breath, no chest pain, and no palpitation. PHYSICAL EXAMINATION: VITAL SIGNS: The patient has a blood pressure of 165/72, pulse 64, respirations 20, and temperature 98. HEENT: Head is normocephalic. NECK: Supple thyroid mass. LUNGS: Clear now. HEART: Regular rate and rhythm. ABDOMEN: Soft and nontender. Positive bowel sounds. EXTREMITIES: There is no edema. The patient had a CAT scan of the thyroid that was done, and it showed . It demonstrated echotexture, normal flow, and there was a nodule in the lower pole. There was goiter. The patient has a consult with . and the plan is that we will do a fine needle biopsy of the thyroid gland. We are going to decrease the Solu-Medrol. Discussed the case with Dr. Novak of Pulmonary. José Antonio Olivarez MD
--- NOTE | 2018-05-10 06:57 | PN ---
DATE: 05/09/2018 SUBJECTIVE: Today, the patient is alert and awake. The patient has less shortness of breath. The patient denied any chest pain, but the patient is complaining of back pain. The patient is diet. The patient denies palpitations. Denied any chest pain. No dizziness. PHYSICAL EXAMINATION: VITAL SIGNS: The patient has blood pressure of 122/63, pulse of 60, respirations 18, temperature 97.5. NECK: Supple. LUNGS: A few rhonchi. HEART: Regular rate and rhythm. ABDOMEN: Soft, nontender. No palpable masses. EXTREMITIES: There is no edema. LABORATORY DATA: The patient's blood work was done yesterday. The plan is that we are going to decrease the Solu-Medrol to 40 mg once a day, but we are going to start the patient on oxycodone every 6 hours p.r.n. and some Colace. X-rays of the lumbar spine may be ordered. The case was discussed and reviewed with Stephanie Hamilton, the nurse practitioner. José Antonio Olivarez MD
[2018-05-10 07:37] LABS: ALB/GLOB RATIO 1.3 (1.0-2.1); ALBUMIN 3.7 g/dL (3.5-5.0); CALCIUM 9.8 mg/dl (8.6-10.4)
[2018-05-10] MEDS: (Novolog) Insulin Aspart, Recombinant 100 u/ml 10 ml vial SC SCH ×2 (08:04→13:06)
[2018-05-10] MEDS: Pantoprazole 40 mg EC Tab PO SCH (09:09)
[2018-05-10] MEDS: Nitroglycerin 2% Ointment Foilpak UD TOP SCH (09:09)
[2018-05-10] MEDS: MethylPREDNISolone 40 mg Vial IVP SCH (09:10)
[2018-05-10] MEDS: Fluticasone Nasal 50 mcg/Spray NAS SCH (09:10)
--- NOTE | 2018-05-10 13:20 | CP.PCM.PN ---
Subjective - Date & Time of Evaluation Date of Evaluation: 05/10/18 Time of Evaluation: 13:18 - Subjective Subjective: PT ALERT, OOB IN CHAIR., FEELS BETTER., NO COUGH., NO SOB AT REST. ROS; OTHERWISE NEG. Objective - Vital Signs/Intake and Output Vital Signs (last 24 hours): Temp Pulse Resp BP Pulse Ox 98.1 F 51 L 20 134/72 99 05/10/18 08:10 05/10/18 08:10 05/10/18 08:10 05/10/18 08:10 05/10/18 08:10 - Medications Medications: Current Medications Acetaminophen (Tylenol 325mg Tab) 650 mg PO Q6 PRN PRN Reason: PAIN, MILD 1-3 Albuterol/Ipratropium (Duoneb 3 Mg/0.5 Mg (3 Ml) Ud) 3 ml INH RQ6 [facility] Last Admin: 05/10/18 08:09 Dose: 3 ml Amlodipine Besylate (Norvasc) 10 mg PO DAILY [facility] Last Admin: 05/10/18 09:09 Dose: 10 mg Aspirin (Ecotrin) 81 mg PO DAILY [facility] Last Admin: 05/10/18 09:09 Dose: 81 mg Clonidine HCl (Catapres) 0.1 mg PO HS [facility] Last Admin: 05/09/18 22:34 Dose: 0.1 mg Fenofibrate (Tricor) 48 mg PO DAILY [facility] Last Admin: 05/10/18 09:09 Dose: 48 mg Fluticasone Propionate (Flonase) 1 spr MAGNO RQ12 [facility] Last Admin: 05/10/18 09:10 Dose: 1 spr Heparin Sodium (Porcine) (Heparin) 5,000 units SC Q8 [facility] Last Admin: 05/09/18 22:34 Dose: 5,000 units Hydralazine HCl (Apresoline) 25 mg PO Q12 [facility] Last Admin: 05/10/18 09:10 Dose: 25 mg Sodium Chloride (Sodium Chloride 0.45%) 1,000 mls @ 40 mls/hr IV .Q24H ONE Stop: 05/10/18 16:13 Last Admin: 05/09/18 17:23 Dose: 40 mls/hr Insulin Aspart (Novolog) 0 unit SC ACHS [facility] PRN Reason: Protocol Last Admin: 05/10/18 13:06 Dose: 5 unit Methylprednisolone (Solu-Medrol) 40 mg IVP DAILY [facility] Last Admin: 05/10/18 09:10 Dose: 40 mg Montelukast Sodium (Singulair) 10 mg PO HS [facility] Last Admin: 05/09/18 22:34 Dose: 10 mg Nitroglycerin (Nitro-Bid 2% Oint) 0.5 ea TOP Q12 [facility] Last Admin: 05/10/18 09:09 Dose: 0.5 ea Oxycodone/Acetaminophen (Percocet 5/325 Mg Tab) 1 tab PO Q6H PRN PRN Reason: Pain, moderate (4-7) Stop: 05/11/18 15:31 Pantoprazole Sodium (Protonix Ec Tab) 40 mg PO DAILY [facility] Last Admin: 05/10/18 09:09 Dose: 40 mg - Labs Labs: 05/09/18 07:15 05/10/18 06:43 - Constitutional Appears: No Acute Distress - Head Exam Head Exam: ATRAUMATIC, NORMOCEPHALIC - Eye Exam Eye Exam: EOMI, Normal appearance - ENT Exam ENT Exam: Mucous Membranes Moist - Neck Exam Neck Exam: Thyromegaly - Respiratory Exam Respiratory Exam: Decreased Breath Sounds. absent: Accessory Muscle Use, Wheezes, Stridor - Cardiovascular Exam Cardiovascular Exam: RRR, +S1, +S2 - GI/Abdominal Exam GI & Abdominal Exam: Soft. absent: Tenderness - Rectal Exam Rectal Exam: Deferred - Extremities Exam Extremities Exam: absent: Calf Tenderness, Pedal Edema - Back Exam Back Exam: absent: CVA tenderness (L), CVA tenderness (R) - Neurological Exam Neurological Exam: Alert, Awake, CN II-XII Intact, Oriented x3 - Psychiatric Exam Psychiatric exam: Normal Mood - Skin Skin Exam: absent: Rash Assessment and Plan (1) COPD exacerbation Status: Acute (2) Hypertension Status: Acute (3) Diabetes Status: Acute (4) Anemia Status: Acute (5) Acute kidney injury Status: Acute (6) CAD (coronary artery disease) Status: Acute (7) Goiter Status: Acute - Assessment and Plan (Free Text) Assessment: RESP STATUS IMPROVING., CONT NEB BD., STEROID TAPER. ADEQ OXYGENATION., CXR REVIEWED. MONITOR H/H. IMPROVING RENAL FN. FOR THYROID BX. DISCUSSED WITH STAFF AT LENGTH AND FAMILY AT BEDSIDE.
--- NOTE | 2018-05-10 13:45 | CP.PCM.PN ---
Subjective - Date & Time of Evaluation Date of Evaluation: 05/10/18 Time of Evaluation: 07:00 - Subjective Subjective: General Surgery Note for Dr. Lua Patient seen and examined at bedside. No acute event overnight. Patient still complains of some difficulty swallowing. Patient tolerating diet and ambulationg without difficulty. She admits to passing flatus and having BM. No other complaints at this time. Objective - Vital Signs/Intake and Output Vital Signs (last 24 hours): Temp Pulse Resp BP Pulse Ox 98.1 F 51 L 20 134/72 99 05/10/18 08:10 05/10/18 08:10 05/10/18 08:10 05/10/18 08:10 05/10/18 08:10 - Medications Medications: Current Medications Acetaminophen (Tylenol 325mg Tab) 650 mg PO Q6 PRN PRN Reason: PAIN, MILD 1-3 Albuterol/Ipratropium (Duoneb 3 Mg/0.5 Mg (3 Ml) Ud) 3 ml INH RQ6 [facility] Last Admin: 05/10/18 08:09 Dose: 3 ml Amlodipine Besylate (Norvasc) 10 mg PO DAILY [facility] Last Admin: 05/10/18 09:09 Dose: 10 mg Aspirin (Ecotrin) 81 mg PO DAILY [facility] Last Admin: 05/10/18 09:09 Dose: 81 mg Clonidine HCl (Catapres) 0.1 mg PO HS [facility] Last Admin: 05/09/18 22:34 Dose: 0.1 mg Fenofibrate (Tricor) 48 mg PO DAILY [facility] Last Admin: 05/10/18 09:09 Dose: 48 mg Fluticasone Propionate (Flonase) 1 spr MAGNO RQ12 [facility] Last Admin: 05/10/18 09:10 Dose: 1 spr Heparin Sodium (Porcine) (Heparin) 5,000 units SC Q8 [facility] Last Admin: 05/09/18 22:34 Dose: 5,000 units Hydralazine HCl (Apresoline) 25 mg PO Q12 [facility] Last Admin: 05/10/18 09:10 Dose: 25 mg Sodium Chloride (Sodium Chloride 0.45%) 1,000 mls @ 40 mls/hr IV .Q24H ONE Stop: 05/10/18 16:13 Last Admin: 05/09/18 17:23 Dose: 40 mls/hr Insulin Aspart (Novolog) 0 unit SC ACHS [facility] PRN Reason: Protocol Last Admin: 05/10/18 13:06 Dose: 5 unit Methylprednisolone (Solu-Medrol) 40 mg IVP DAILY [facility] Last Admin: 05/10/18 09:10 Dose: 40 mg Montelukast Sodium (Singulair) 10 mg PO HS [facility] Last Admin: 05/09/18 22:34 Dose: 10 mg Nitroglycerin (Nitro-Bid 2% Oint) 0.5 ea TOP Q12 [facility] Last Admin: 05/10/18 09:09 Dose: 0.5 ea Oxycodone/Acetaminophen (Percocet 5/325 Mg Tab) 1 tab PO Q6H PRN PRN Reason: Pain, moderate (4-7) Stop: 05/11/18 15:31 Pantoprazole Sodium (Protonix Ec Tab) 40 mg PO DAILY [facility] Last Admin: 05/10/18 09:09 Dose: 40 mg - Labs Labs: 05/09/18 07:15 05/10/18 06:43 - Additional Findings Additional findings: - Constitutional Appears: Well, Non-toxic, No Acute Distress - Head Exam Head Exam: ATRAUMATIC, NORMAL INSPECTION, NORMOCEPHALIC - Eye Exam Eye Exam: EOMI, Normal appearance - ENT Exam ENT Exam: Mucous Membranes Moist - Neck Exam Neck exam: Positive for: Thyromegaly. Negative for: Tenderness - Respiratory Exam Respiratory Exam: Clear to Auscultation Bilateral, NORMAL BREATHING PATTERN. absent: Chest Wall Tenderness, Wheezes, Respiratory Distress - Cardiovascular Exam Cardiovascular Exam: REGULAR RHYTHM, +S1, +S2 - GI/Abdominal Exam GI & Abdominal Exam: Normal Bowel Sounds, Soft. absent: Tenderness - Neurological Exam Neurological exam: Alert, Oriented x3 - Psychiatric Exam Psychiatric exam: Normal Affect, Normal Mood - Skin Skin Exam: Dry, Intact, Normal Color, Warm Assessment and Plan - Assessment and Plan (Free Text) Assessment: 77F w/ nontoxic multinodular thyroid gland Plan: TSH and Free T4 levels wnl Further recommendations as per Dr. Pk Bates PGY2
[2018-05-10 16:25] VITALS: BP 170/68; PULSE 63; TEMP 98.2; O2SAT 100
--- NOTE | 2018-05-10 16:58 | CP.PCM.PN ---
Subjective - Date & Time of Evaluation Date of Evaluation: 05/10/18 Time of Evaluation: 11:00 - Subjective Subjective: awake, alert, no sob or chest pains, NAD. Objective - Vital Signs/Intake and Output Vital Signs (last 24 hours): Temp Pulse Resp BP Pulse Ox 98.2 F 63 20 170/68 H 100 05/10/18 15:00 05/10/18 15:00 05/10/18 15:00 05/10/18 15:00 05/10/18 15:00 - Medications Medications: Current Medications Acetaminophen (Tylenol 325mg Tab) 650 mg PO Q6 PRN PRN Reason: PAIN, MILD 1-3 Albuterol/Ipratropium (Duoneb 3 Mg/0.5 Mg (3 Ml) Ud) 3 ml INH RQ6 [facility] Last Admin: 05/10/18 13:45 Dose: Not Given Amlodipine Besylate (Norvasc) 10 mg PO DAILY [facility] Last Admin: 05/10/18 09:09 Dose: 10 mg Aspirin (Ecotrin) 81 mg PO DAILY [facility] Last Admin: 05/10/18 09:09 Dose: 81 mg Clonidine HCl (Catapres) 0.1 mg PO HS [facility] Last Admin: 05/09/18 22:34 Dose: 0.1 mg Fenofibrate (Tricor) 48 mg PO DAILY [facility] Last Admin: 05/10/18 09:09 Dose: 48 mg Fluticasone Propionate (Flonase) 1 spr MAGNO RQ12 [facility] Last Admin: 05/10/18 09:10 Dose: 1 spr Heparin Sodium (Porcine) (Heparin) 5,000 units SC Q8 [facility] Last Admin: 05/10/18 15:18 Dose: 5,000 units Hydralazine HCl (Apresoline) 25 mg PO Q12 [facility] Last Admin: 05/10/18 09:10 Dose: 25 mg Insulin Aspart (Novolog) 0 unit SC ACHS [facility] PRN Reason: Protocol Last Admin: 05/10/18 13:06 Dose: 5 unit Methylprednisolone (Solu-Medrol) 40 mg IVP DAILY [facility] Last Admin: 05/10/18 09:10 Dose: 40 mg Montelukast Sodium (Singulair) 10 mg PO HS [facility] Last Admin: 05/09/18 22:34 Dose: 10 mg Nitroglycerin (Nitro-Bid 2% Oint) 0.5 ea TOP Q12 [facility] Last Admin: 05/10/18 09:09 Dose: 0.5 ea Oxycodone/Acetaminophen (Percocet 5/325 Mg Tab) 1 tab PO Q6H PRN PRN Reason: Pain, moderate (4-7) Stop: 05/11/18 15:31 Pantoprazole Sodium (Protonix Ec Tab) 40 mg PO DAILY [facility] Last Admin: 05/10/18 09:09 Dose: 40 mg - Labs Labs: 05/09/18 07:15 05/10/18 06:43 Assessment and Plan - Assessment and Plan (Free Text) Assessment: 77 YR old female admitted with dyspnea, CHF, seen by DR Olivarez, alert, awake, no sob or chest pains. Being discharged to [facility] rehab today. Thyroid biopsy to be done as outpatient. Will continue with prednisone 10mg po bid.
--- NOTE | 2018-05-10 17:03 | PCM.HF ---
Heart Failure Core Measure - Heart Failure Ejection Fraction: 40 % or Greater (EF >70%) YVON Inhibitor Prescribed: No Contraindication/Reason for not providing: renal insufficiency Beta-Yunior Prescribed: None Contraindication/Reason for not providing: asthma Angiotensin II Receptor Yunior Prescribed: No Contraindication/Reason for not providing: renal insufficiency AnticoagulationTherapy for Atrial Fibrillation/Atrialflutter: No Contraindication/Reason for not providing: no afib Aldosterone Antagonist Prescribed: No Contraindication/Reason for not providing: EF >40% Hydralazine Nitrate Prescribed: Yes Implantable Cardioverter Defibrillator Therapy: Yes Contraindication/Reason for not providing: EF >40% Cardiac Resynchronization Therapy Prescribed: No Contraindication/Reason for not providing: not indicated - Follow up Will be discharged to: [facility] ([facility]
--- NOTE | 2018-05-10 22:43 | PN ---
DATE: 05/10/2018 FOLLOWUP SUBJECTIVE: The patient denied any dizziness. Shortness of breath has improved. No reported stridor. PHYSICAL EXAMINATION: VITAL SIGNS: Blood pressure 172/68, heart rate 63, temperature 98.2, respirations 20. HEENT: Normocephalic. CHEST: Minimal rhonchi. HEART: S1 and S2 are regular. ABDOMEN: Soft. EXTREMITIES: No edema. LABORATORY DATA: Today's SMA-7: Sodium 147, potassium 3.6, chloride 107, CO2 of 29, glucose 124, BUN 36, creatinine 1.3. ASSESSMENT: 1. Hypertension. 2. Improved shortness of breath. 3. Rule out upper airway obstruction caused by a nontoxic multinodular goiter. 4. Improving prerenal azotemia. 5. Uncontrolled diabetes mellitus. RECOMMENDATIONS: Continue hydralazine 25 mg every 12 hours, clonidine 0.1 mg daily, aspirin 81 mg once a day, heparin 5000 units subcutaneously every 8 hours, Norvasc 10 mg once a day, Solu-Medrol 40 mg intravenously daily, TriCor 48 mg once a day. I did review the medical or surgical instrument maker consult and awaiting Dr. Lua's evaluation. Eliseo Arce MD
--- NOTE | 2018-05-11 07:20 | PN ---
DATE: 05/10/2018 SUBJECTIVE: Today, the patient is alert and awake. Denies any shortness of breath. No stridor. No dizziness. No chest pain. PHYSICAL EXAMINATION: VITAL SIGNS: The patient has a blood pressure of 134/72, pulse is 61, respirations 20, temperature 98.1. NECK: Supple but there is palpable goiter. LUNGS: Clear. HEART: Regular rate and rhythm. Positive murmur. ABDOMEN: Soft and nontender. No palpable mass. BACK: Tenderness to the lumbar area. EXTREMITIES: There is no edema. Also, the patient has some tenderness to the lower back with standing and walking. The patient has test done, WBC 16.7. The patient is on Solu-Medrol. The plan was to discontinue the Solu-Medrol and put the patient on prednisone. We have ordered a fine needle biopsy of the thyroid mass. The case was reviewed with Nadya, the nurse practitioner. ADDENDUM: The plan is to transfer patient to subacute rehab. José Antonio Olivarez MD
--- NOTE | 2018-05-12 05:43 | DS ---
HISTORY OF PRESENT ILLNESS: The patient is a 77-year-old female with history of diabetes, hypertension, and diabetic neuropathy. The patient went to the emergency room, because the patient was found to be short of breath, and also the patient was also using accessory muscles. The patient had a CAT scan of the neck and the chest is done and the CAT of the neck had shown that there was a thyroid mass compressing the trachea. PHYSICAL EXAMINATION: LUNGS: There was wheezing. HEART: Regular rate and rhythm but there is a murmur. ABDOMEN: Soft. EXTREMITIES: No edema. ASSESSMENT AND PLAN: The patient had a consult with Dr. Novak of Pulmonary and Dr. Arce of Cardiology, because she still has wheezing as well as chest pain. The patient had a consult ordered for Dr. Lua, Surgery due to the thyroid mass. The patient was put on Solu-Medrol and Proventil nebulizer and Singulair. Rest of the current medications . The patient has improved and having no more shortness of breath, able to ambulate without oxygen, and the patient had fine needle biopsy that was ordered today, was unable to be done. We are going to discharge the [facility] where we will order to do the fine needle biopsy. Again, the case was reviewed with Ms. Welsh, the nurse practitioner. José Antonio Olivarez MD
== END 2018-05-10 20:07 | DRG 644 ==
LOC: C.ER 02:25 → C.9E 06:38 → C.6T 12:00
PROVIDERS: ADMIT Specialist; ATTEND Specialist
DX: E04.2 Nontoxic multinodular goiter (principal); J44.1 Chronic obstructive pulmonary disease with (acute) exacerbation; N17.9 Acute kidney failure, unspecified; I11.0 Hypertensive heart disease with heart failure; I50.9 Heart failure, unspecified; E11.65 Type 2 diabetes mellitus with hyperglycemia; E87.6 Hypokalemia; I25.10 Atherosclerotic heart disease of native coronary artery without angina pectoris; I27.20 Pulmonary hypertension, unspecified; D64.9 Anemia, unspecified; E78.00 Pure hypercholesterolemia, unspecified; K21.9 Gastro-esophageal reflux disease without esophagitis; R13.10 Dysphagia, unspecified; Z87.442 Personal history of urinary calculi; Z98.41 Cataract extraction status, right eye